=== PATIENT | male | born 1955 | race Native Hawaiian/Other Pacific Islander ===

== ENCOUNTER → 2018-10-05 | Outpatient (CLI) | payer OTHER ==
[~2018-10-05] MED LIST: AMLO5 PO; ATEN50 PO; CEPH500 PO; CIPR500 PO; CLIN150 PO; FENO48 PO; Flomax0.4 MG PO; HYDCHL25 PO; HYDR1TAB94 PO; LEVEMIR FL100 UNIT/1 SC; LISI10 PO; LISI20 PO; LISI5 PO; LOVA40 PO; METF500 PO; NAPR500 PO; Novolin R100 UNIT/M; OXYB5 PO; RANI150 PO; SAXA2.5T PO; SIMV10 PO; SITA25T2 PO; SULTRIDS PO; SULTRISS PO; TOBR.3OPSO OP; [UNRECOGNIZED DRUG - REMARK]
[2018-10-10 07:12] LABS: COTININE 94.2 ng/mL (.); NICOTINE None Detected (.)
== END | disposition home or self-care (01) ==
LOC: LAB SHORT 13:40 → LAB 13:40
PROVIDERS: Nurse Practitioner Family
DX: F17.201 Nicotine dependence, unspecified, in remission (principal)
CPT/HCPCS: G0480

== ENCOUNTER → 2019-08-16 | Outpatient (CLI) | payer OTHER ==
[2019-08-25 14:23] LABS: Stool Occult Bld Immuno 1 Negative (NEGATIVE)
== END | disposition home or self-care (01) ==
LOC: LAB SHORT 10:00 → LAB 10:00 → LAB FUT 06-21 15:10
PROVIDERS: Nurse Practitioner Family
DX: Z12.11 Encounter for screening for malignant neoplasm of colon (principal)
CPT/HCPCS: G0328

== ENCOUNTER 2020-12-26 18:59 | Emergency (ER) | payer OTHER ==
[~2020-12-26] VITALS: Ht 180.3 cm; Wt 95.2 kg
[2020-12-26] MEDS ORDERED: CYCL10 PO (19:56)
[2020-12-26] MEDS ORDERED: IBUP600 PO (19:56)
== END 2020-12-26 20:10 | disposition home or self-care (01) ==
LOC: ER 18:59
DX: S39.012A Strain of muscle, fascia and tendon of lower back, initial encounter (principal); M54.41 Lumbago with sciatica, right side; I10 Essential (primary) hypertension; E11.9 Type 2 diabetes mellitus without complications; F17.200 Nicotine dependence, unspecified, uncomplicated; Z79.4 Long term (current) use of insulin; Z79.899 Other long term (current) drug therapy; X50.1XXA Overexertion from prolonged static or awkward postures, initial encounter
CPT/HCPCS: 96372; 99283-25; A9270; J1100; J1885

== ENCOUNTER → 2022-12-16 | Outpatient (CLI) | payer MEDICARE, OTHER ==
[~2022-12-16] MED LIST changes: +CYCL10 PO; +IBUP600 PO
== END | disposition home or self-care (01) ==
LOC: LAB SHORT 08:30
DX: B36.9 Superficial mycosis, unspecified (principal); H62.42 Otitis externa in other diseases classified elsewhere, left ear
CPT/HCPCS: 87070; 87106; 87205

== ENCOUNTER → 2023-03-08 | Outpatient (CLI) | payer OTHER ==
[2023-03-14 09:53] LABS: Stool Occult Bld Immuno 1 Negative (NEGATIVE)
== END ==
LOC: LAB SHORT 14:02 → LAB 14:02
PROVIDERS: Nurse Practitioner Family
DX: Z12.11 Encounter for screening for malignant neoplasm of colon (principal)
CPT/HCPCS: G0328

== ENCOUNTER 2023-07-04 20:46 | Emergency (ER) | payer OTHER ==
[~2023-07-04] VITALS: Ht 180.3 cm; Wt 90.7 kg
[2023-07-04 21:24] VITALS: BP 165/112
== END 2023-07-04 23:20 | disposition home or self-care (01) ==
LOC: ER 20:46
DX: S80.811A Abrasion, right lower leg, initial encounter (principal); S60.811A Abrasion of right wrist, initial encounter; E11.9 Type 2 diabetes mellitus without complications; I10 Essential (primary) hypertension; Z79.4 Long term (current) use of insulin; Z79.84 Long term (current) use of oral hypoglycemic drugs; Z79.899 Other long term (current) drug therapy; F17.200 Nicotine dependence, unspecified, uncomplicated; V29.99XA Rider (driver) (passenger) of other motorcycle injured in unspecified traffic accident, initial encounter; Z23 Encounter for immunization
CPT/HCPCS: 90471; 90715; 99283-25

== ENCOUNTER → 2025-01-13 | Outpatient (CLI) | payer OTHER ==
[~2025-01-13] MED LIST changes: +AMLO10 PO; -AMLO5 PO; +B-COMPLEX1 EACH PO; +BUME2 PO; +LOSA25 PO; +PRAVASTATIN SOD20 MG PO; +SEVEC800 PO; +TAMSULOSIN HCL0.4 M1 PO
== END ==
LOC: LAB 07:00 → LAB SHORT 07:00
DX: N18.6 End stage renal disease (principal)
CPT/HCPCS: 84132

== ENCOUNTER → 2025-01-15 | Outpatient (CLI) | payer OTHER | END | disposition home or self-care (01) | LOC: LAB 08:26 → LAB SHORT 08:26 | DX: N18.6 End stage renal disease (principal) | CPT/HCPCS: 84132 ==

== ENCOUNTER 2025-04-03 06:02 | Observation (INO) | payer OTHER ==
[~2025-04-03] VITALS: Ht 180.3 cm; Wt 87.9 kg
[2025-04-03] VITALS (15 sets, daily range): BP systolic 117–145; BP diastolic 73–108
[~2025-04-03 06:02] MED LIST changes: +CHLO25B PO
[2025-04-03] MEDS ORDERED: Ipratropium/Albuterol SulF 2.5-0.5MG/3 ML Amp INH PRN (06:25)
[2025-04-03 06:31] LABS: BASOPHILS ABSOLUTE AUTO 0.10 K/mm3 (0.00-0.23); BASOPHILS PERCENT AUTO 1 % (0-2); EOSINOPHILS ABSOLUTE AUTO 0.30 K/mm3 (0.00-0.68); EOSINOPHILS PERCENT AUTO 3 % (0-6); Hematocrit 43.6 % (37.0-53.0); Hemoglobin 13.7 g/dL (13.5-17.5); IMMATURE GRAN ABSOLUTE AUTO 0.03 K/mm3 (0.00-0.10); IMMATURE GRAN PERCENT AUTO 0 % (0-1); LYMPHOCYTES ABSOLUTE AUTO 1.83 K/mm3 (0.84-5.20); LYMPHOCYTES PERCENT AUTO 16 % (21-46); MONOCYTES ABSOLUTE AUTO 0.97 K/mm3 (0.16-1.47); MONOCYTES PERCENT AUTO 8 % (4-13); Mean Corpuscular HGB Conc 31.4 g/dL (31.5-36.5); Mean Corpuscular Volume 88 fL (80-100); NEUTROPHILS ABSOLUTE AUTO 8.61 K/mm3 (1.96-9.15); NEUTROPHILS PERCENT AUTO 73 % (41-73); NRBC ABSOLUTE 0.00 K/mm3 (0.00-0.02); NRBC Auto 0.0 /100 WBC (0.0-0.2); Platelet Count 304 K/mm3 (150-400); RDW Coefficient Variation 16.1 % (11.7-14.2); RDW Standard Deviation 52.1 fL (35.1-46.3)
[2025-04-03 06:56] LABS: Alanine Aminotransfer (ALT/SGP 15.0 U/L (12-78); Albumin, Blood 3.6 g/dL (3.4-5.0); Albumin/Globulin Ratio 0.8 (0.8-1.8); Anion Gap 11.0 mmol/L (3-11); Aspartate Aminotrans (AST/SGOT 15.0 U/L (12-37); Bilirubin, Total 0.7 mg/dL (0.1-1.0); Blood Urea Nitrogen 30.0 mg/dL (8-24); CO2, Blood 30.0 mmol/L (21-32); Calcium, Blood 8.7 mg/dL (8.5-10.1); Chloride, Blood 99.0 mmol/L (98-108); Creatinine, Blood 5.8 mg/dL (0.60-1.20); Globulin, Blood 4.5 g/dL (2.2-4.0); Glucose, Blood 132.0 mg/dL (70-99); Potassium, Blood 3.5 mmol/L (3.5-5.5); Sodium, Blood 136.0 mmol/L (136-145); Total Protein, Blood 8.1 g/dL (6.4-8.2)
[2025-04-03] MEDS ORDERED: Bumetanide 0.25 MG/ML 10ML Vial IV ONE (07:50)
[2025-04-03] MEDS ORDERED: Ondansetron HCl 2 MG / ML 2ML Vial IV PRN (08:45)
[2025-04-03] MEDS ORDERED: ONDA4ODT MM (08:57)
[2025-04-03] MEDS ORDERED: Heparin Sodium,Porcine 5,000 UNIT/0.5 ML SDV SC SCH (09:00)
[2025-04-03] MEDS ORDERED: Darbepoetin (Pharmacy Consult) XX PRN (10:40)
[2025-04-03] MEDS ORDERED: Insulin Regular 100 UNIT/ML 10ML Vial SC SCH ×2 (11:30)
--- NOTE | 2025-04-03 18:26 | NUR ---
DAY SUMMARY NEW ER ADMIT THIS SHIFT, HAS BEEN ANXIOUS AND AGITATED INTERMITTENTLY, HAD DIALYSIS TODAY (3L REMOVED), C/O LEG CRAMPS POST DIALYSIS, MEDICATED X1 FOR ANXIETY (0.5 XANAX), CURRENTLY MAINTAINING 02 SATS GREATER THAN 90% ON RA, BEDRESTING AT THIS TIME, CALL LIGHT IN REACH, WILL CONT TO MONITOR UNTIL REPORT GIVEN TO REID ORONA.
--- NOTE | 2025-04-04 03:09 | NUR ---
SHIFT SUMMARY: AOX4, BUT ANXIOUS. PT WAS PACING THE ROOM, AND ADJUSTING/READJUSTING HIS SCD SLEEVES. DENIED HAVING ANXIETY, BUT STATED THAT HE WANTS "TO GO HOME TODAY." INFORMED PT OF THE RISKS OF LEAVING BEFORE DISCHARGE. ADVISED HIM TO DISCUSS DISCHARGE WITH HIS DOCTOR IN THE MORNING. PLACED PT ON 3L O2 FOR COMFORT, PT HAS SHORT PERIODS OF DYSPNEA. PT REPEATEDLY REMOVES OXYMASK DESPITE FEELING SOB. CALL LIGHT IS WITHIN REACH. BED IS LOW AND LOCKED.
[2025-04-04 04:08] VITALS: BP 119/85
--- NOTE | 2025-04-04 06:49 | NUR ---
Pateient stating he is "leaving right now,' states he has spoken to dr. ford, Dr. Ortega was notified, pt signed AMA form, IV & tele removed, pt walked out for dc @ [id number]
== END 2025-04-04 06:45 | disposition left against medical advice (07) ==
LOC: ER 06:02 → MEDS 06:03
PROVIDERS: Student in an Organized Health Care Education/Training Program; ADMIT Internal Medicine
DX: J96.01 Acute respiratory failure with hypoxia (principal); E87.70 Fluid overload, unspecified; I13.2 Hypertensive heart and chronic kidney disease with heart failure and with stage 5 chronic kidney disease, or end stage renal disease; E11.22 Type 2 diabetes mellitus with diabetic chronic kidney disease; N18.6 End stage renal disease; I50.23 Acute on chronic systolic (congestive) heart failure; E87.6 Hypokalemia; E87.1 Hypo-osmolality and hyponatremia; D64.9 Anemia, unspecified; Z99.2 Dependence on renal dialysis; Z79.899 Other long term (current) drug therapy; Z79.01 Long term (current) use of anticoagulants; Z79.4 Long term (current) use of insulin; Z53.29 Procedure and treatment not carried out because of patient's decision for other reasons
CPT/HCPCS: 71046; 80053; 82947; 83880; 84484; 85025; 93005; 93010; 94762; 96374; 96375; 99285-25; A9270; G0257; G0378; J1815; J2919

== ENCOUNTER 2025-06-25 21:27 | Observation (INO) | payer OTHER ==
[~2025-06-25] VITALS: Ht 180.3 cm; Wt 82.3 kg
[~2025-06-25 21:27] MED LIST changes: +Calcium Acetat667 MG PO; +LEVE500 PO; +MIDODRINE HCL10 M6 PO; +ONDA4ODT MM; +Potassium Chlo20 ME1 PO; +RENVELA800 MG PO
[2025-06-25 22:11] LABS: BASOPHILS ABSOLUTE AUTO 0.05 K/mm3 (0.00-0.23); BASOPHILS PERCENT AUTO 0 % (0-2); EOSINOPHILS ABSOLUTE AUTO 0.04 K/mm3 (0.00-0.68); EOSINOPHILS PERCENT AUTO 0 % (0-6); Hematocrit 49.5 % (37.0-53.0); Hemoglobin 15.9 g/dL (13.5-17.5); IMMATURE GRAN ABSOLUTE AUTO 0.04 K/mm3 (0.00-0.10); IMMATURE GRAN PERCENT AUTO 0 % (0-1); LYMPHOCYTES ABSOLUTE AUTO 1.01 K/mm3 (0.84-5.20); LYMPHOCYTES PERCENT AUTO 9 % (21-46); MONOCYTES ABSOLUTE AUTO 1.17 K/mm3 (0.16-1.47); MONOCYTES PERCENT AUTO 10 % (4-13); Mean Corpuscular HGB Conc 32.1 g/dL (31.5-36.5); Mean Corpuscular Volume 89 fL (80-100); NEUTROPHILS ABSOLUTE AUTO 9.55 K/mm3 (1.96-9.15); NEUTROPHILS PERCENT AUTO 81 % (41-73); NRBC ABSOLUTE 0.00 K/mm3 (0.00-0.02); NRBC Auto 0.0 /100 WBC (0.0-0.2); Platelet Count 218 K/mm3 (150-400); RDW Coefficient Variation 19.3 % (11.7-14.2); RDW Standard Deviation 59.7 fL (35.1-46.3)
[2025-06-25 22:37] LABS: Alanine Aminotransfer (ALT/SGP 627.0 U/L (12-78); Albumin, Blood 3.8 g/dL (3.4-5.0); Albumin/Globulin Ratio 1.0 (0.8-1.8); Anion Gap 20.0 mmol/L (3-11); Aspartate Aminotrans (AST/SGOT 691.0 U/L (12-37); Bilirubin, Total 2.4 mg/dL (0.1-1.0); Blood Urea Nitrogen 42.0 mg/dL (8-24); CO2, Blood 22.0 mmol/L (21-32); Calcium, Blood 7.7 mg/dL (8.5-10.1); Chloride, Blood 93.0 mmol/L (98-108); Creatinine, Blood 7.45 mg/dL (0.60-1.20); Globulin, Blood 3.8 g/dL (2.2-4.0); Glucose, Blood 115.0 mg/dL (70-99); Potassium, Blood 6.9 mmol/L (3.5-5.5); Sodium, Blood 128.0 mmol/L (136-145); Total Protein, Blood 7.6 g/dL (6.4-8.2)
[2025-06-25] MEDS ORDERED: Albuterol 2.5 MG/3 ML VIAL INH SCH (22:45)
[2025-06-25 23:00] LABS: Magnesium, Blood 2.6 mg/dL (1.6-2.4)
[2025-06-25 23:28] LABS: Alanine Aminotransfer (ALT/SGP 717.0 U/L (12-78); Albumin, Blood 3.8 g/dL (3.4-5.0); Albumin/Globulin Ratio 1.0 (0.8-1.8); Anion Gap 19.0 mmol/L (3-11); Aspartate Aminotrans (AST/SGOT 797.0 U/L (12-37); Bilirubin, Total 2.2 mg/dL (0.1-1.0); Blood Urea Nitrogen 43.0 mg/dL (8-24); CO2, Blood 20.0 mmol/L (21-32); Calcium, Blood 7.6 mg/dL (8.5-10.1); Chloride, Blood 95.0 mmol/L (98-108); Creatinine, Blood 7.25 mg/dL (0.60-1.20); Globulin, Blood 3.7 g/dL (2.2-4.0); Glucose, Blood 125.0 mg/dL (70-99); Potassium, Blood 6.3 mmol/L (3.5-5.5); Sodium, Blood 128.0 mmol/L (136-145); Total Protein, Blood 7.5 g/dL (6.4-8.2)
[2025-06-25] MEDS ORDERED: Calcium Gluconate 10% 1,000 MG in NS 50 ML IV ONE (23:30)
[2025-06-25] MEDS ORDERED: Sodium Bicarb 8.4% 1 MEQ/ML 50 ML Vial IV ONE (23:35)
[2025-06-25] MEDS ORDERED: Insulin Regular 100 Unit/ML 1ML Dose IV ONE (23:35)
[2025-06-25 23:42] LABS: Influenza A, PCR NEGATIVE (NEGATIVE); Influenza B, PCR NEGATIVE (NEGATIVE); Resp Syncytial Virus, PCR NEGATIVE (NEGATIVE); SARS-Cov-2 (COVID-19) PCR, MMC NEGATIVE (NEGATIVE)
[2025-06-26] VITALS (23 sets, daily range): BP systolic 107–182; BP diastolic 73–114
[2025-06-26] MEDS ORDERED: CALCIUM GLUC IN NACL, ISO-OSM 50 ML IV ONE (00:25)
[2025-06-26] MEDS ORDERED: FLU VACC TS2025-26(6MOS UP)/PF 45 MCG/0.5 ML SYRINGE IM SCH (00:40)
[2025-06-26] MEDS ORDERED: Albuterol 2.5 MG/3 ML VIAL INH PRN (00:40)
[2025-06-26 01:45] LABS: Anion Gap 19.0 mmol/L (3-11); Blood Urea Nitrogen 44.0 mg/dL (8-24); CO2, Blood 20.0 mmol/L (21-32); Calcium, Blood 7.7 mg/dL (8.5-10.1); Chloride, Blood 96.0 mmol/L (98-108); Creatinine, Blood 7.41 mg/dL (0.60-1.20); Glucose, Blood 88.0 mg/dL (70-99); Potassium, Blood 5.6 mmol/L (3.5-5.5); Sodium, Blood 129.0 mmol/L (136-145)
--- NOTE | 2025-06-26 02:40 | NUR ---
ADMISSION NOTE PATIENT ARRIVED TO PCU 16 VIA GURNEY. PATIENT A/OX4. ABLE TO STAND AND TRANSFER TO BED WITH SBA. NO OBVIOUS DISTRESS NOTED. PATIENT DRESSED INTO PATIENT GOWN, PUT OWN SWEATPANTS FROM HOME ON. PLACED ON IMPORTER OR EXPORTER AND CONTINUOUS TELE. CALL LIGHT PROVIDED AND BED IN LOWEST POSITION.
[2025-06-26 04:02] LABS: BASOPHILS ABSOLUTE AUTO 0.07 K/mm3 (0.00-0.23); BASOPHILS PERCENT AUTO 1 % (0-2); EOSINOPHILS ABSOLUTE AUTO 0.01 K/mm3 (0.00-0.68); EOSINOPHILS PERCENT AUTO 0 % (0-6); Hematocrit 47.2 % (37.0-53.0); Hemoglobin 15.4 g/dL (13.5-17.5); IMMATURE GRAN ABSOLUTE AUTO 0.04 K/mm3 (0.00-0.10); IMMATURE GRAN PERCENT AUTO 0 % (0-1); LYMPHOCYTES ABSOLUTE AUTO 1.05 K/mm3 (0.84-5.20); LYMPHOCYTES PERCENT AUTO 9 % (21-46); MONOCYTES ABSOLUTE AUTO 1.52 K/mm3 (0.16-1.47); MONOCYTES PERCENT AUTO 14 % (4-13); Mean Corpuscular HGB Conc 32.6 g/dL (31.5-36.5); Mean Corpuscular Volume 88 fL (80-100); NEUTROPHILS ABSOLUTE AUTO 8.45 K/mm3 (1.96-9.15); NEUTROPHILS PERCENT AUTO 76 % (41-73); NRBC ABSOLUTE 0.03 K/mm3 (0.00-0.02); NRBC Auto 0.3 /100 WBC (0.0-0.2); Platelet Count 203 K/mm3 (150-400); RDW Coefficient Variation 18.9 % (11.7-14.2); RDW Standard Deviation 57.2 fL (35.1-46.3)
[2025-06-26 04:28] LABS: Anion Gap 18.0 mmol/L (3-11); Blood Urea Nitrogen 46.0 mg/dL (8-24); CO2, Blood 21.0 mmol/L (21-32); Calcium, Blood 7.5 mg/dL (8.5-10.1); Chloride, Blood 95.0 mmol/L (98-108); Creatinine, Blood 7.61 mg/dL (0.60-1.20); Glucose, Blood 105.0 mg/dL (70-99); Potassium, Blood 5.9 mmol/L (3.5-5.5); Sodium, Blood 128.0 mmol/L (136-145)
[2025-06-26] MEDS ORDERED: FentaNYL Citrate 50 MCG/ML 2 ML Injection IV PRN (04:55)
--- NOTE | 2025-06-26 04:55 | NUR ---
SHIFT SUMMARY PATIENT A/OX4. LS CTA. TACHYNEA AT REST. NO DISTRESS NOTED. PATIENT DESATURATES TO HIGH 70'S ON ROOM AIR WHILE SLEEPING. O2 PLACED AND TITRATED TO 4L/MIN. PATIENT REPORTS PAIN TO R SHOULDER, WHICH INCREASES WITH MOVEMENT. PAIN STARTED AFTER FALL OVER A WEEK AGO. XRAY ORDERED AND PENDING. PATIENT TOLERATING PO INTAKE WELL. NO ACUTE EVENTS OVERNIGHT. ABLE TO MAKE NEEDS KNOWN. CALL LIGHT IN REACH AND BED IN LOWEST POSITION.
--- NOTE | 2025-06-26 05:43 | NUR ---
ASSMPTION OF CARE/SHIFT SUMMARY THIS RN TO ASSUME CARE OF PT AT 0530. REPORT RECIEVED FROM MAMIE RODRÍGUEZ. PT A&O X4, FLAT AFFECT, COOPERATIVE TO CARE. HR IN THE 80'S, SR WITH ALTERNATING BBB. SBP STABLE. PT ON 4L VIA NC, PT NOT ON OXYGEN AT BL. PT DESATS WITH SLEEP. HE HAS A DIALYSIS PORT IN THE RIGHT UPPER CHEST. PT HAD POTASSIUM OF 5.9 ON MORNING LABS. NEPHROLOGY WAS NOTIFIED. PLAN FOR DIALYSIS THIS AM. PT HAVING SOME PAIN IN LEFT SHOULDER FROM FALL AT HOME, MEDICATING PER EMAR. PT LAYING IN BED AT THIS TIME. CALL LIGHT IN REACH. WILL MONITOR PT AND REPORT TO ONCOMING RN.
[2025-06-26] MEDS ORDERED: Heparin Sodium,Porcine 5,000 UNIT/0.5 ML SDV SC SCH (09:00)
[2025-06-26] MEDS ORDERED: Insulin Human Lispro 100 Units/ML 3ML Syringe SC SCH (11:30)
--- NOTE | 2025-06-26 11:47 | NUR ---
ASSUMPTION OF CARE ASSUMED CARE OF PATIENT AT 0700 AFTER RECIEVING BEDSIDE SHIFT REPORT. 02 SATS >94% ON RA. SYSTOLIC BP STABLE. HR IN SR. PATIENT RESTING COMFORTABLY IN BED IN LOWEST POSITION, CALL LIGHT WITH IN REACH.
[2025-06-26] MEDS ORDERED: Calcium Acetate 667 MG Gel Cap PO SCH (17:30)
--- NOTE | 2025-06-26 18:14 | NUR ---
SHIFT ASSESSMENT PATIENT A&O X 4. COMPLETED DIALYSIS TODAY WITH 3L TAKEN OFF. POST DIALYSIS VITALS SIGNS STABLE. 02 SATS >98% ON 2 L NC. D/C O2 PER PROVIDER AND MAINTAINING O2 SATS >94%. PATIENT DISCHARGED PER PROVIDER. EDUCATED PATIENT ON HOME MEDICATIONS AND FOLLOW UP APPOINTMENTS. PATIENT'S PIV'S WERE D/C WITH TIPS INTACT. PATIENT TOLERATED REMOVAL WELL.
[2025-06-28 10:30] LABS: HEPATITIS A ANTIBODY, IGM Negative (Negative); HEPATITIS C AB CIA INTERP Negative (Negative); HEPATITIS C ANTIBODY CIA INDEX 0.03 IV
== END 2025-06-26 18:00 | disposition home or self-care (01) ==
LOC: ER 21:27 → PCU 21:28
PROVIDERS: Emergency Medicine; Student in an Organized Health Care Education/Training Program; ADMIT Internal Medicine
DX: I13.2 Hypertensive heart and chronic kidney disease with heart failure and with stage 5 chronic kidney disease, or end stage renal disease (principal); E11.22 Type 2 diabetes mellitus with diabetic chronic kidney disease; N18.6 End stage renal disease; I50.20 Unspecified systolic (congestive) heart failure; E87.5 Hyperkalemia; R56.9 Unspecified convulsions; M25.511 Pain in right shoulder; R74.01 Elevation of levels of liver transaminase levels; I35.0 Nonrheumatic aortic (valve) stenosis; F17.210 Nicotine dependence, cigarettes, uncomplicated; Z79.899 Other long term (current) drug therapy; Z99.2 Dependence on renal dialysis
CPT/HCPCS: 36415; 71046; 73030; 76705; 80048; 80053; 80074; 82947; 83735; 84484; 85025; 87637; 93005; 93010; 94762; 96372; 96374; 99285-25; A9270; G0257; G0378; J0612; J1644; J1815